=== PATIENT | female | born 1955 | race Two or more races ===

== ENCOUNTER 2016-09-10 23:15 | Inpatient (IN) | payer MEDICAID ==
[2016-09-10 23:48] VITALS: BP 118/63
[2016-09-11] MEDS ORDERED: Ipratropium Neb 0.5 mg/2.5 mL UD HHN PRN (00:08)
[2016-09-11] MEDS ORDERED: Albuterol Nebulizer 2.5mg/3mL HHN PRN (00:11)
[2016-09-11 01:47] LABS: URINE BILIRUBIN NEGATIVE (NEGATIVE); URINE BLOOD TRACE (NEGATIVE); URINE COLOR YELLOW; URINE GLUCOSE (UA) NEGATIVE (NEGATIVE); URINE KETONE NEGATIVE (NEGATIVE); URINE PROTEIN NEGATIVE (NEGATIVE); URINE UROBILINOGEN 0.2 E.U./dL (0.2 - 1.0)
[2016-09-11 01:50] LABS: URINE BACTERIA OCCASIONAL /hpf (NONE SEEN); URINE EPITHELIAL CELLS MODERATE /lpf (FEW); URINE RBC 0-2 /hpf (0-5); URINE WBC 0-2 /hpf (0-5)
[2016-09-11] MEDS: INSULIN ASPART, RECOMBINANT 100 UNITS/ML SUBQ SCH ×4 (06:37→20:20)
[2016-09-11 06:59] LABS: ALB/GLOB RATIO 1.2 (1.0-1.8); ALKALINE PHOSPHATASE 74 U/L (34-104); ANION GAP 7.8 (7.0-16.0); BILIRUBIN,TOTAL 1.3 mg/dL (0.3-1.0); BUN - UREA NITROGEN 15 mg/dL (7-25); CALCIUM SERUM 9.3 mg/dL (8.6-10.3); CHLORIDE 97 mEq/L (98-107); CREATININE - SERUM 0.6 mg/dL (0.6-1.2); GLUCOSE 200 mg/dL (70-105); MAGNESIUM 1.6 mg/dL (1.9-2.7); POTASSIUM SERUM 4.5 mEq/L (3.5-5.1); SGOT 15 U/L (13-39); SGPT/ALT 19 U/L (7-52); SODIUM SERUM 141 mEq/L (136-145)
[2016-09-11 07:15] LABS: CARBON DIOXIDE 40.7 mEq/L (21.0-31.0)
[2016-09-11 07:26] LABS: HEMOGLOBIN 11.8 gm/dL (11.7-15.5); MEAN CELL VOLUME 73.1 fl (81-100); MEAN CORPUSCULAR HEMOGLOBIN 21.5 pg (27.0-31.0); MEAN CORPUSCULAR HGB CONC 29.5 pg (28.0-36.0); MEAN PLATELET VOLUME 10.1 fl; PLATELET COUNT 217 Th/cmm (150-400); RED BLOOD COUNT 5.48 Mil/cmm (3.80-5.10); RED CELL DISTRIBUTION WIDTH 21.6 % (11.5-20.0); WHITE BLOOD COUNT 6.7 Th/cmm (4.8-10.8)
[2016-09-11] MEDS ORDERED: INSULIN ASPART SLIDING SCALE 100 UNITS/ML UNIT SUBQ SCH (07:30)
[2016-09-11] MEDS ORDERED: Levothyroxine 0.112 Mg Tab PO SCH (07:30)
[2016-09-11] MEDS: Pantoprazole 40 mg EC Tab PO SCH (08:28)
[2016-09-11] MEDS: Potassium Chloride 10 mEq ER Tab PO SCH ×2 (08:29→16:54)
[2016-09-11] MEDS ORDERED: Potassium Chloride 10 mEq ER Tab PO SCH (09:00)
[2016-09-11 09:43] LABS: BAND NEUTROPHILE 1 % (0-10); EOSINOPHIL 4 % (0-5); NEUTROPHILS 72 % (40-80); TOTAL CELLS COUNTED 100
[2016-09-11 09:44] LABS: ANISOCYTOSIS 1+; MICROCYTOSIS 3+; PLATELET ESTIMATE ADEQUATE (NORMAL); PLATELET MORPHOLOGY NORMAL (NORMAL)
[2016-09-11] MEDS ORDERED: Mag Sulfate 2gm/50mL Premix 2 GM/50 ML BAG IV ONE (11:22)
--- NOTE | 2016-09-11 12:23 | Diagnostic Imaging Report ---
Portable chest x-ray HISTORY: Shortness of breath. The heart is enlarged. No focal pulmonary processes. No hilar or mediastinal abnormalities. IMPRESSION: 1. Cardiomegaly 2. No acute focal pulmonary processes
--- NOTE | 2016-09-11 12:28 | Internal Medicine Prog Note ---
Internal Medicine Subjective - Subjective Service Date: 09/11/16 ([id number] [facility] dictated) Internal Medicine Objective - Results Result Diagrams: 09/11/16 05:49 09/11/16 05:49 Recent Labs: Laboratory Last Values WBC 6.7 Th/cmm (4.8-10.8) 09/11/16 05:49 RBC 5.48 Mil/cmm (3.80-5.10) H 09/11/16 05:49 Hgb 11.8 gm/dL (11.7-15.5) 09/11/16 05:49 Hct 40.0 % (35.0-45.0) 09/11/16 05:49 MCV 73.1 fl (81-100) L 09/11/16 05:49 MCH 21.5 pg (27.0-31.0) L 09/11/16 05:49 MCHC Differential 29.5 pg (28.0-36.0) 09/11/16 05:49 RDW 21.6 % (11.5-20.0) H 09/11/16 05:49 Plt Count 217 Th/cmm (150-400) 09/11/16 05:49 MPV 10.1 fl 09/11/16 05:49 Band Neutrophils % 1 % (0-10) 09/11/16 05:49 Neutrophils (Manual) 72 % (40-80) 09/11/16 05:49 Lymphocytes 11 % (20-50) L 09/11/16 05:49 Monocytes 12 % (2-10) H 09/11/16 05:49 Eosinophils 4 % (0-5) 09/11/16 05:49 Platelet Estimate ADEQUATE (NORMAL) 09/11/16 05:49 Platelet Morphology NORMAL (NORMAL) 09/11/16 05:49 Anisocytosis 1+ 09/11/16 05:49 Microcytosis 3+ 09/11/16 05:49 RBC Morph Micro Appear ABNORMAL (NORMAL) 09/11/16 05:49 Sodium 141 mEq/L (136-145) 09/11/16 05:49 Potassium 4.5 mEq/L (3.5-5.1) 09/11/16 05:49 Chloride 97 mEq/L (98-107) L 09/11/16 05:49 Carbon Dioxide 40.7 mEq/L (21.0-31.0) H 09/11/16 05:49 Anion Gap 7.8 (7.0-16.0) 09/11/16 05:49 BUN 15 mg/dL (7-25) 09/11/16 05:49 Creatinine 0.6 mg/dL (0.6-1.2) 09/11/16 05:49 Est GFR ( Amer) > 60.0 ml/min (>90) 09/11/16 05:49 Est GFR (Non-Af Amer) > 60.0 ml/min 09/11/16 05:49 BUN/Creatinine Ratio 25.0 09/11/16 05:49 Glucose 200 mg/dL (70-105) H 09/11/16 05:49 POC Glucose 219 MG/DL (70 - 105) H 09/11/16 11:45 Hemoglobin A1c % 9.0 % (4.0-6.0) H 09/11/16 05:49 Calcium 9.3 mg/dL (8.6-10.3) 09/11/16 05:49 Magnesium 1.6 mg/dL (1.9-2.7) L 09/11/16 05:49 Total Bilirubin 1.3 mg/dL (0.3-1.0) H 09/11/16 05:49 AST 15 U/L (13-39) 09/11/16 05:49 ALT 19 U/L (7-52) 09/11/16 05:49 Alkaline Phosphatase 74 U/L (34-104) 09/11/16 05:49 B-Natriuretic Peptide 141.0 pg/mL (5.0-100.0) H 09/11/16 05:49 Total Protein 6.2 gm/dL (6.0-8.3) 09/11/16 05:49 Albumin 3.4 gm/dL (3.7-5.3) L 09/11/16 05:49 Globulin 2.8 gm/dL 09/11/16 05:49 Albumin/Globulin Ratio 1.2 (1.0-1.8) 09/11/16 05:49 TSH 11.37 uIU/ml (0.34-5.60) H 09/11/16 05:49 Urine Source CLEAN C 09/11/16 00:45 Urine Color YELLOW 09/11/16 00:45 Urine Clarity CLEAR (CLEAR) 09/11/16 00:45 Urine pH 5.0 09/11/16 00:45 Ur Specific [place] 1.015 (1.005-1.030) 09/11/16 00:45 Urine Protein NEGATIVE mg/dL (NEGATIVE) 09/11/16 00:45 Urine Glucose (UA) NEGATIVE mg/dL (NEGATIVE) 09/11/16 00:45 Urine Ketones NEGATIVE mg/dL (NEGATIVE) 09/11/16 00:45 Urine Blood TRACE (NEGATIVE) 09/11/16 00:45 Urine Nitrate NEGATIVE (NEGATIVE) 09/11/16 00:45 Urine Bilirubin NEGATIVE (NEGATIVE) 09/11/16 00:45 Urine Urobilinogen 0.2 E.U./dL (0.2 - 1.0) 09/11/16 00:45 Ur Leukocyte Esterase NEGATIVE (NEGATIVE) 09/11/16 00:45 Urine RBC 0-2 /hpf (0-5) 09/11/16 00:45 Urine WBC 0-2 /hpf (0-5) 09/11/16 00:45 Ur Epithelial Cells MODERATE /lpf (FEW) 09/11/16 00:45 Urine Bacteria OCCASIONAL /hpf (NONE SEEN) 09/11/16 00:45 - Physical Exam Vitals and I&O: Vital Signs Temp 97.3 F 09/11/16 03:47 Pulse 85 09/11/16 08:28 Resp 20 09/11/16 04:28 BP 120/63 09/11/16 08:28 Pulse Ox 100 09/11/16 03:47 Intake & Output 09/10/16 09/11/16 09/11/16 18:59 06:59 18:59 Intake Total 400 Output Total 700 Balance -300 Weight (lbs) 150 lb Intake: Oral 400 Output: Urine 700 Active Medications: Current Medications Acetaminophen (Tylenol) 650 mg PO Q4HR PRN PRN Reason: Pain or Fever >101 Stop: 11/10/16 00:10 Albuterol Sulfate (Albuterol 2.5mg/3ml Neb Ud) 2.5 mg HHN Q2HR PRN PRN Reason: Shortness of Breath or Wheeze Stop: 11/10/16 00:10 Last Admin: 09/11/16 01:01 Dose: 2.5 mg Aspirin (Ecotrin) 81 mg PO DAILY [facility] EUGENIA Stop: 11/10/16 08:59 Last Admin: 09/11/16 08:28 Dose: 81 mg Docusate Sodium (Colace) 100 mg PO DAILY PRN PRN Reason: Constipation Stop: 11/10/16 00:07 Fluoxetine HCl (Prozac) 20 mg PO DAILY [facility] EUGENIA PRN Reason: Protocol Stop: 11/10/16 08:59 Last Admin: 09/11/16 10:31 Dose: 20 mg Furosemide (Lasix) 40 mg IVP DAILY [facility] EUGEN[facility] Stop: 11/11/16 08:59 Glipizide (Glucotrol) 10 mg PO BID [facility] EU[facility] Stop: 11/10/16 08:59 Last Admin: 09/11/16 08:28 Dose: 10 mg Heparin Sodium (Porcine) (Heparin) 5,000 units SUBQ Q12HR [facility] EUGEN[facility] Stop: 11/10/16 08:59 Last Admin: 09/11/16 09:06 Dose: 5,000 units Magnesium Sulfate (Magnesium Sulfate Premix) 2 gm in 50 mls @ 25 mls/hr IV X1 ONE Stop: 09/11/16 13:21 Last Admin: 09/11/16 11:58 Dose: 25 mls/hr Insulin Aspart (Novolog) 0 units SUBQ ACHS [facility] EUGEN[facility] PRN Reason: Protocol Stop: 11/10/16 07:29 Last Admin: 09/11/16 11:57 Dose: 2 units Ipratropium [place] (Atrovent Neb 0.5mg/2.5ml) 0.5 mg HHN Q6HR PRN PRN Reason: SOB, wheezing Stop: 11/10/16 00:07 Levothyroxine Sodium (Synthroid) 0.15 mg PO QDAC [facility] Stop: 11/11/16 07:29 Metoprolol Tartrate (Lopressor) 50 mg PO BID [facility] EUGEN[facility] Stop: 11/10/16 08:59 Last Admin: 09/11/16 08:28 Dose: 50 mg Ondansetron HCl (Zofran) 4 mg IV Q8H PRN PRN Reason: Nausea / Vomiting Stop: 11/10/16 00:10 Pantoprazole Sodium (Protonix) 40 mg PO DAILY [facility] EUGEN[facility] Stop: 11/10/16 08:59 Last Admin: 09/11/16 08:28 Dose: 40 mg Pioglitazone HCl (Actos) 15 mg PO DAILY [facility] Stop: 11/10/16 08:59 Last Admin: 09/11/16 08:28 Dose: 15 mg Potassium Chloride (Klor-Con) 10 meq PO BID [facility] Stop: 11/10/16 08:59 Last Admin: 09/11/16 08:29 Dose: 10 meq Simvastatin (Zocor) 20 mg PO HS [facility] EUGENIA PRN Reason: Protocol Stop: 11/10/16 20:59 Zolpidem Tartrate (Ambien) 10 mg PO HS PRN PRN Reason: Insomnia Stop: 11/10/16 00:10 Internal Medicine Assmt/Plan - Assessment Assessment: ACUTE CHF EXACERBATION MORBID OBESITY HTN HYPOTHYROIDISM HYPOMAGNESEMIA MORBID OBESITY DM-2 DEPRESSION
--- NOTE | 2016-09-11 12:32 | Admit Criteria Form ---
Admit Criteria Forms - Admit Criteria Diagnosis: HEART FAILURE: COMMON COMPLICATIONS Clinical Indications for Inpatient Care (Place 'X' for any and all applicable criteria): Ongoing inpatient care may be indicated for heart failure with ANY ONE of the following (1)(2)(3)(4)(5): [ ]I. Ongoing need for care for primary condition requiring frequent therapy adjustments because of changes in cardiac function (eg, drug dosage changes for drugs that are renally metabolized) [ ]II. New-onset heart failure [ ]III. Heart failure with decreased urine output not responsive to attempts to optimize volume status [ ]IV. Acute cardiac ischemia causing or associated with failure [X]V. Complications of heart failure, including ANY ONE of the following: [ ]a) Pericardial effusion [ ]b) Symptomatic pleural effusion [ ]c) O2 saturation <90% or PO2 < 60 mm Hg (8.0 kPa) on room air or require baseline supplemental O2 [ ]d) Tachypnea [ ]e) Dyspnea [ ]f) Syncope [ ]g) Change in mental status [ ]h) Acute renal insufficiency that is severe (reduction of more than 50% in estimated glomerular filtration rate from baseline) or progressive reduction of more than 25% in estimated glomerular filtration rate from baseline, with creatinine continuing to rise) [ ]i) Hemodynamic instability [X]j) Anasarca [ ]k) Clinically significant metabolic abnormalities due to heart failure (eg, new-onset metabolic acidosis) Extended stay beyond goal length of stay for primary condition may be needed until ALL of the following are present(1)(3): [ ]a) Stable and effective diuretic regimen established (or patient on stable dialysis regimen if in chronic renal failure) [ ]b) Breathing comfortably at rest [ ]c) Saturation of arterial oxygen greater than 90% or at acceptable baseline [ ]d) Pulmonary edema absent or improved [ ]e) Hemodynamic stability [ ]f) Volume status acceptable on oral medication [ ]g) Peripheral or sacral edema absent or improved [ ]h) Renal function stable and manageable at a lower level of care [ ]i) Complications (eg, pleural effusion) resolved or manageable at a lower level of care [ ]j) Patient or caregiver has received written discharge instructions or educational material addressing activity level, diet, discharge medications, follow-up appointment, weight monitoring, and what to do if symptoms worsen The original [employer] content created by [employer] has been revised. The portions of the content which have been revised are identified through the use of italic text or in bold, and [employer] has neither reviewed nor approved the modified material.All other unmodified content is copyright [employer]. Please see references footnoted in the original [employer] edition 2016 Admit Criteria Met?: Yes
--- NOTE | 2016-09-11 14:50 | History & Physical ---
CHIEF COMPLAINT: Depression and edema. HISTORY OF PRESENT ILLNESS: This is a 61-year-old female who is a direct admission from [facility]. According to the patient, she was just recently at [place] 4 days ago and she states that she had a flu. Upon coming back here to the [place], the patient stated that she started to feel depressed she left her family and she started to get shortness of breath associated with leg swelling. The patient denies any cough, any chest pain. Due to insurance purposes, the patient is now here at [facility]. PAST MEDICAL HISTORY: Asthma, type 2 diabetes, hypertension, hypothyroidism, obesity, hypercholesterolemia. PAST SURGICAL HISTORY: The patient stated that she had a thyroidectomy but she stated that it was a while back she cannot remember how long ago it was. SOCIAL HISTORY: Denies any smoking, drinking, or illicit drug usage. FAMILY HISTORY: Noncontributory. ALLERGIES: No drug allergies. REVIEW OF SYSTEMS: GENERAL: Denies any fever, any chills. CARDIOVASCULAR: Denies any chest pain. RESPIRATORY: Denies any shortness of breath or any cough. GASTROINTESTINAL: Denies any nausea, vomiting, abdominal pain. GENITOURINARY: Denies any dysuria. All other systems are reviewed by me and are negative. PHYSICAL EXAMINATION: GENERAL: The patient is morbidly obese, awake, alert, in no apparent distress. VITAL SIGNS: Temperature 97.0, heart rate 85, blood pressure 114/64, respirations 19, O2 100%. HEENT: Head; normocephalic, atraumatic. NECK: Supple. No mass. LUNGS: Few rhonchi. HEART: Regular rhythm. ABDOMEN: Soft, nontender. LABORATORY RESULTS: WBC 6.7, H and H 11.8 and 40.0, platelet of 217. Sodium 141, potassium 4.5, chloride 97, carbon dioxide 40.7, BUN 15, creatinine 0.6, hemoglobin A1c of 9.0, magnesium 1.6. The patient had a urinalysis done and it was negative for any UTI. DIAGNOSTICS: The patient had a chest x-ray done and the impression is cardiomegaly, no acute pulmonary processes. ASSESSMENT: 1. Acute congestive heart failure exacerbation. 2. Generalized edema. 3. Hypothyroidism. 4. Type 2 diabetes. 5. Hypomagnesemia. PLAN: Cardiac consult Dr. Jose Christianson. Low sodium diet. The patient will obtain a 2D echo. Monitor the patient's INR. The patient will be kept on Lasix. We will continue to monitor the patient. JOB# [id number]
--- NOTE | 2016-09-12 00:05 | Consultation ---
The patient of Dr. Mansfield. HISTORY AND PHYSICAL: This 61-year-old female patient who was recently visiting [place]. Following this, the patient is started complaining of abdominal swelling, both lower extremity swelling, depression, and the patient was brought to the Emergency Room with anasarca and the patient was transferred to [facility] due to insurance reason. PAST MEDICAL HISTORY: Obesity, diabetes mellitus type 2, asthma, hypertension, hyperlipidemia, hypomagnesium, hypothyroid with thyroidectomy. FAMILY HISTORY: Unremarkable. SOCIAL HISTORY: No history of smoking, alcohol abuse. ALLERGIES: No known allergies. PHYSICAL EXAMINATION: VITAL SIGNS: Blood pressure 114/82, pulse 70, respirations 20. HEAD: Normocephalic. No lumps or bumps. EYES: Pupils equal, reactive to light. Fundi show AV nicking, sclerae white, conjunctivae pink. NECK: Carotid 2+. Normal upstroke. JVD flat. Thyroid not palpable. Lymph nodes not palpable. CHEST: Shows increased AP diameter. No kyphosis or scoliosis. LUNGS: Bilateral rales. Decreased breath sounds both the bases. HEART: PMI, fifth intercostal space with lateral to midclavicular line. S1, S2, S3, S4. Systolic murmur, grade 2/6, lower left sternal border without radiation. ABDOMEN: Soft. Liver, spleen not palpable. The patient has ascites, obesity, no organomegaly. NEUROLOGIC: Unremarkable. EXTREMITIES: Peripheral pulses 2+. No pedal edema. CLINICAL IMPRESSION: Acute respiratory failure, generalized anasarca, congestive heart failure, hypothyroidism, hypomagnesium, diabetes mellitus type 2, thyroidectomy. PLAN: The patient to have magnesium sulfate IV, is to continue on supplemental hypothyroid medication. The patient is to have echocardiogram for left ventricular function. JOB# [id number]
[2016-09-12 05:47] LABS: HEMATOCRIT 38.9 % (35.0-45.0); HEMOGLOBIN 11.6 gm/dL (11.7-15.5); MEAN CELL VOLUME 72.6 fl (81-100); MEAN CORPUSCULAR HEMOGLOBIN 21.6 pg (27.0-31.0); MEAN CORPUSCULAR HGB CONC 29.8 pg (28.0-36.0); MEAN PLATELET VOLUME 8.6 fl; PLATELET COUNT 196 Th/cmm (150-400); RED BLOOD COUNT 5.36 Mil/cmm (3.80-5.10); RED CELL DISTRIBUTION WIDTH 22.1 % (11.5-20.0); WHITE BLOOD COUNT 7.5 Th/cmm (4.8-10.8)
[2016-09-12 06:07] LABS: ANION GAP 3.8 (7.0-16.0); BUN - UREA NITROGEN 18 mg/dL (7-25); CALCIUM SERUM 9.1 mg/dL (8.6-10.3); CHLORIDE 93 mEq/L (98-107); CREATININE - SERUM 0.6 mg/dL (0.6-1.2); GLUCOSE 126 mg/dL (70-105); POTASSIUM SERUM 4.5 mEq/L (3.5-5.1); SODIUM SERUM 138 mEq/L (136-145)
[2016-09-12 06:12] LABS: CARBON DIOXIDE 45.7 mEq/L (21.0-31.0)
[2016-09-12] MEDS: Levothyroxine 0.15 Mg Tab PO SCH (06:51)
[2016-09-12] MEDS: INSULIN ASPART, RECOMBINANT 100 UNITS/ML SUBQ SCH ×4 (06:57→20:38)
[2016-09-12] MEDS: Potassium Chloride 10 mEq ER Tab PO SCH ×2 (08:20→17:44)
[2016-09-12] MEDS: Pantoprazole 40 mg EC Tab PO SCH (08:20)
[2016-09-12 08:24] LABS: BAND NEUTROPHILE 2 % (0-10); EOSINOPHIL 10 % (0-5); NEUTROPHILS 73 % (40-80); TOTAL CELLS COUNTED 100
[2016-09-12 08:25] LABS: ANISOCYTOSIS 1+
[2016-09-12 08:26] LABS: MICROCYTOSIS 3+; PLATELET ESTIMATE ADEQUATE (NORMAL); PLATELET MORPHOLOGY NORMAL (NORMAL)
[2016-09-12 10:17] LABS: FOLIC ACID 12.1 ng/mL (>3.0)
--- NOTE | 2016-09-12 15:56 | Cardiology ---
M-MODE ECHOCARDIOGRAM: Anterior leaflets of mitral valve shows normal excursion, EF velocity. Posterior leaflets of mitral valve shows normal excursion. Left ventricular posterior wall shows increased thickness, normal excursion. Interventricular septum shows increased thickness, normal excursion, hypertrophy of the left ventricle, ejection fraction 55%. Left atrium normal. Aortic root shows normal dimension, normal excursion of aortic leaflets. CONCLUSION: Hypertrophy of the left ventricle, ejection fraction 55%. 2D ECHO: Long axis view showed normal sized left ventricle with hypertrophy of the left ventricle. Left atrium normal. Aortic root shows normal dimension, normal excursion of aortic leaflets. Short axis view of mitral valve normal. Short axis view of aortic valve normal. Apical four chamber view showed normal sized left ventricle with hypertrophy of the left ventricle. Left atrium normal. Right ventricular cavity, right atrium normal, no pericardial effusion. CONCLUSION: Hypertrophy of the left ventricle, ejection fraction 55%. Doppler study shows trace mitral regurgitation, prominent A wave consistent with poor compliance of left ventricle. Trace tricuspid regurgitation. [facility]# [id number]
--- NOTE | 2016-09-12 16:03 | Internal Medicine Prog Note ---
Internal Medicine Subjective - Subjective Service Date: 09/12/16 Patient seen and examined:: with staff Patient is:: awake Per staff patient is:: no adverse event Internal Medicine Objective - Results Result Diagrams: 09/12/16 05:21 09/12/16 05:21 Recent Labs: Laboratory Last Values WBC 7.5 Th/cmm (4.8-10.8) 09/12/16 05:21 RBC 5.36 Mil/cmm (3.80-5.10) H 09/12/16 05:21 Hgb 11.6 gm/dL (11.7-15.5) L 09/12/16 05:21 Hct 38.9 % (35.0-45.0) 09/12/16 05:21 MCV 72.6 fl (81-100) L 09/12/16 05:21 MCH 21.6 pg (27.0-31.0) L 09/12/16 05:21 MCHC Differential 29.8 pg (28.0-36.0) 09/12/16 05:21 RDW 22.1 % (11.5-20.0) H 09/12/16 05:21 Plt Count 196 Th/cmm (150-400) 09/12/16 05:21 MPV 8.6 fl 09/12/16 05:21 Band Neutrophils % 2 % (0-10) 09/12/16 05:21 Neutrophils (Manual) 73 % (40-80) 09/12/16 05:21 Lymphocytes 10 % (20-50) L 09/12/16 05:21 Monocytes 5 % (2-10) 09/12/16 05:21 Eosinophils 10 % (0-5) H 09/12/16 05:21 Platelet Estimate ADEQUATE (NORMAL) 09/12/16 05:21 Platelet Morphology NORMAL (NORMAL) 09/12/16 05:21 Anisocytosis 1+ 09/12/16 05:21 Microcytosis 3+ 09/12/16 05:21 RBC Morph Micro Appear ABNORMAL (NORMAL) 09/12/16 05:21 Sodium 138 mEq/L (136-145) 09/12/16 05:21 Potassium 4.5 mEq/L (3.5-5.1) 09/12/16 05:21 Chloride 93 mEq/L (98-107) L 09/12/16 05:21 Carbon Dioxide 45.7 mEq/L (21.0-31.0) H 09/12/16 05:21 Anion Gap 3.8 (7.0-16.0) L 09/12/16 05:21 BUN 18 mg/dL (7-25) 09/12/16 05:21 Creatinine 0.6 mg/dL (0.6-1.2) 09/12/16 05:21 Est GFR ( Amer) > 60.0 ml/min (>90) 09/12/16 05:21 Est GFR (Non-Af Amer) > 60.0 ml/min 09/12/16 05:21 BUN/Creatinine Ratio 30.0 09/12/16 05:21 Glucose 126 mg/dL (70-105) H 09/12/16 05:21 POC Glucose 191 MG/DL (70 - 105) H 09/12/16 11:26 Hemoglobin A1c % 9.0 % (4.0-6.0) H 09/11/16 05:49 Calcium 9.1 mg/dL (8.6-10.3) 09/12/16 05:21 Magnesium 2.0 mg/dL (1.9-2.7) 09/12/16 05:21 Total Bilirubin 1.3 mg/dL (0.3-1.0) H 09/11/16 05:49 AST 15 U/L (13-39) 09/11/16 05:49 ALT 19 U/L (7-52) 09/11/16 05:49 Alkaline Phosphatase 74 U/L (34-104) 09/11/16 05:49 B-Natriuretic Peptide 141.0 pg/mL (5.0-100.0) H 09/11/16 05:49 Total Protein 6.2 gm/dL (6.0-8.3) 09/11/16 05:49 Albumin 3.4 gm/dL (3.7-5.3) L 09/11/16 05:49 Globulin 2.8 gm/dL 09/11/16 05:49 Albumin/Globulin Ratio 1.2 (1.0-1.8) 09/11/16 05:49 Vitamin B12 1351 pg/mL (211-946) H 09/11/16 05:49 Folic Acid 12.1 ng/mL (>3.0) 09/11/16 05:49 TSH 11.37 uIU/ml (0.34-5.60) H 09/11/16 05:49 Urine Source CLEAN C 09/11/16 00:45 Urine Color YELLOW 09/11/16 00:45 Urine Clarity CLEAR (CLEAR) 09/11/16 00:45 Urine pH 5.0 09/11/16 00:45 Ur Specific [place] 1.015 (1.005-1.030) 09/11/16 00:45 Urine Protein NEGATIVE mg/dL (NEGATIVE) 09/11/16 00:45 Urine Glucose (UA) NEGATIVE mg/dL (NEGATIVE) 09/11/16 00:45 Urine Ketones NEGATIVE mg/dL (NEGATIVE) 09/11/16 00:45 Urine Blood TRACE (NEGATIVE) 09/11/16 00:45 Urine Nitrate NEGATIVE (NEGATIVE) 09/11/16 00:45 Urine Bilirubin NEGATIVE (NEGATIVE) 09/11/16 00:45 Urine Urobilinogen 0.2 E.U./dL (0.2 - 1.0) 09/11/16 00:45 Ur Leukocyte Esterase NEGATIVE (NEGATIVE) 09/11/16 00:45 Urine RBC 0-2 /hpf (0-5) 09/11/16 00:45 Urine WBC 0-2 /hpf (0-5) 09/11/16 00:45 Ur Epithelial Cells MODERATE /lpf (FEW) 09/11/16 00:45 Urine Bacteria OCCASIONAL /hpf (NONE SEEN) 09/11/16 00:45 - Physical Exam Vitals and I&O: Vital Signs Temp 97.5 F 09/12/16 11:00 Pulse 87 09/12/16 11:00 Resp 20 09/12/16 12:00 BP 90/59 09/12/16 11:00 Pulse Ox 94 09/12/16 11:00 Intake & Output 09/11/16 09/12/16 09/12/16 18:59 06:59 18:59 Intake Total 1600 500 Output Total 1700 650 Balance -100 -150 Weight (lbs) 222 lb 221 lb Intake: Oral 1600 500 Output: Urine 1700 650 Other: Stool Characteristics Soft Formed Active Medications: Current Medications Acetaminophen (Tylenol) 650 mg PO Q4HR PRN PRN Reason: Pain or Fever >101 Stop: 11/10/16 00:10 Albuterol Sulfate (Albuterol 2.5mg/3ml Neb Ud) 2.5 mg HHN Q2HR PRN PRN Reason: Shortness of Breath or Wheeze Stop: 11/10/16 00:10 Last Admin: 09/11/16 01:01 Dose: 2.5 mg Aspirin (Ecotrin) 81 mg PO DAILY [facility]IA EUGENIA Stop: 11/10/16 08:59 Last Admin: 09/12/16 08:21 Dose: 81 mg Docusate Sodium (Colace) 100 mg PO DAILY PRN PRN Reason: Constipation Stop: 11/10/16 00:07 Fluoxetine HCl (Prozac) 20 mg PO DAILY MARIA EUGENIA PRN Reason: Protocol Stop: 11/10/16 08:59 Last Admin: 09/12/16 08:21 Dose: 20 mg Furosemide (Lasix) 40 mg IVP DAILY [facility] Stop: 11/11/16 08:59 Last Admin: 09/12/16 08:21 Dose: 40 mg Glipizide (Glucotrol) 10 mg PO BID [facility] Stop: 11/10/16 08:59 Last Admin: 09/12/16 08:20 Dose: 10 mg Heparin Sodium (Porcine) (Heparin) 5,000 units SUBQ Q12HR [facility] EUGEN[facility] Stop: 11/10/16 08:59 Last Admin: 09/12/16 08:30 Dose: 5,000 units Insulin Aspart (Novolog) 0 units SUBQ ACHS [facility]IA EUGENIA PRN Reason: Protocol Stop: 11/10/16 07:29 Last Admin: 09/12/16 11:30 Dose: Not Given Ipratropium [place] (Atrovent Neb 0.5mg/2.5ml) 0.5 mg HHN Q6HR PRN PRN Reason: SOB, wheezing Stop: 11/10/16 00:07 Levothyroxine Sodium (Synthroid) 0.15 mg PO QDAC [facility] Stop: 11/11/16 07:29 Last Admin: 09/12/16 06:51 Dose: 0.15 mg Metoprolol Tartrate (Lopressor) 50 mg PO BID [facility] Stop: 11/10/16 08:59 Last Admin: 09/12/16 08:25 Dose: Not Given Ondansetron HCl (Zofran) 4 mg IV Q8H PRN PRN Reason: Nausea / Vomiting Stop: 11/10/16 00:10 Pantoprazole Sodium (Protonix) 40 mg PO DAILY [facility] EUGENIA Stop: 11/10/16 08:59 Last Admin: 09/12/16 08:20 Dose: 40 mg Pioglitazone HCl (Actos) 15 mg PO DAILY [facility] EUGENIA Stop: 11/10/16 08:59 Last Admin: 09/12/16 08:20 Dose: 15 mg Potassium Chloride (Klor-Con) 10 meq PO BID [facility] EUGENIA Stop: 11/10/16 08:59 Last Admin: 09/12/16 08:20 Dose: 10 meq Simvastatin (Zocor) 20 mg PO HS [facility] EUGENIA PRN Reason: Protocol Stop: 11/10/16 20:59 Last Admin: 09/11/16 20:19 Dose: 20 mg Zolpidem Tartrate (Ambien) 10 mg PO HS PRN PRN Reason: Insomnia Stop: 11/10/16 00:10 General: alert HEENT: NC/AT, PERRLA Neck: Supple Lungs: CTAB Cardiovascular: RRR, Normal S1, Normal S2, without murmur Abdomen: soft non-tender, non-distended, positive bowel sound Neurological: no change Internal Medicine Assmt/Plan - Assessment Assessment: ACUTE CHF EXACERBATION MORBID OBESITY HTN HYPOTHYROIDISM HYPOMAGNESEMIA MORBID OBESITY DM-2 DEPRESSION - Plan Plan: AWAITING FOR 2D ECHO F/U LAB IN AM IF CLEARED BY CARDIO WILL DC TOMORROW
--- NOTE | 2016-09-13 03:54 | Consultation ---
HISTORY OF PRESENT ILLNESS: The patient was seen, chart reviewed. [id number] was present. Georgian-speaking staff helped. The patient is a 61-year-old female with a history of anxiety and depression. She feels helpless at times, talked about her medical issues, but she has no wishes, no suicidal thoughts. The patient reports occasional insomnia, talked about tingling sensation in her feet for a while, possibly related to diabetic neuropathy. The patient said she feels sad and she feels helpless. PAST PSYCHIATRIC HISTORY: No prior psychiatric hospitalizations. No prior suicidal attempts. PAST MEDICAL HISTORY: Hypertension, obesity, asthma versus COPD, and diabetes. PSYCHOSOCIAL HISTORY: The patient lives at home with her son and [id number]. MENTAL STATUS EXAMINATION: The patient is cooperative, makes fair eye contact. Speech fluent, low tone. The patient had sad facial expression and depressed affect. No other visual hallucination. She is oriented to time, place, and person. No suicidal thoughts. ASSESSMENT: Major depressive disorder, recurrent, moderate to severe. PLAN: At this time, we would recommend continuation of medical supportive measures, continue Ambien 10 mg p.o. at bedtime p.r.n. insomnia. Use Cymbalta 30 mg daily for 1 week, then increase it to 60 mg daily. This medication might be effective for both depression and neuropathic pain. Discontinue Prozac. The patient is in agreement. Thank you for the consultation. [facility]# [id number]
[2016-09-13 05:46] LABS: HEMOGLOBIN 11.8 gm/dL (11.7-15.5); MEAN CELL VOLUME 72.3 fl (81-100); MEAN CORPUSCULAR HEMOGLOBIN 21.9 pg (27.0-31.0); MEAN CORPUSCULAR HGB CONC 30.2 pg (28.0-36.0); MEAN PLATELET VOLUME 9.3 fl; PLATELET COUNT 232 Th/cmm (150-400); RED BLOOD COUNT 5.39 Mil/cmm (3.80-5.10); RED CELL DISTRIBUTION WIDTH 22.2 % (11.5-20.0); WHITE BLOOD COUNT 7.3 Th/cmm (4.8-10.8)
[2016-09-13 06:21] LABS: ANION GAP 5.5 (7.0-16.0); BUN - UREA NITROGEN 14 mg/dL (7-25); CALCIUM SERUM 9.5 mg/dL (8.6-10.3); CHLORIDE 92 mEq/L (98-107); CREATININE - SERUM 0.5 mg/dL (0.6-1.2); GLUCOSE 130 mg/dL (70-105); MAGNESIUM 1.8 mg/dL (1.9-2.7); POTASSIUM SERUM 4.7 mEq/L (3.5-5.1); SODIUM SERUM 137 mEq/L (136-145)
[2016-09-13 06:23] LABS: CARBON DIOXIDE 44.2 mEq/L (21.0-31.0)
[2016-09-13] MEDS: Levothyroxine 0.15 Mg Tab PO SCH (06:34)
[2016-09-13] MEDS: INSULIN ASPART, RECOMBINANT 100 UNITS/ML SUBQ SCH ×4 (06:36→20:31)
[2016-09-13] MEDS: Pantoprazole 40 mg EC Tab PO SCH (08:50)
[2016-09-13] MEDS: Potassium Chloride 10 mEq ER Tab PO SCH ×2 (08:50→17:15)
[2016-09-13 08:51] LABS: EOSINOPHIL 5 % (0-5); NEUTROPHILS 80 % (40-80); TOTAL CELLS COUNTED 100
[2016-09-13 08:52] LABS: ANISOCYTOSIS 1+; MICROCYTOSIS 2+; PLATELET ESTIMATE ADEQUATE (NORMAL); PLATELET MORPHOLOGY NORMAL (NORMAL)
[2016-09-13] MEDS ORDERED: Mag Sulfate 2gm/50mL Premix 2 GM/50 ML BAG IV ONE (16:44)
--- NOTE | 2016-09-13 16:45 | Internal Medicine Prog Note ---
Internal Medicine Subjective - Subjective Patient seen and examined:: with staff, chart reviewed Patient is:: awake, verbal, interactive Patient Complaints of:: congestion Per staff patient is:: no adverse event, poor appetite Internal Medicine Objective - Results Result Diagrams: 09/13/16 05:06 09/13/16 05:06 Recent Labs: Laboratory Last Values WBC 7.3 Th/cmm (4.8-10.8) 09/13/16 05:06 RBC 5.39 Mil/cmm (3.80-5.10) H 09/13/16 05:06 Hgb 11.8 gm/dL (11.7-15.5) 09/13/16 05:06 Hct 39.0 % (35.0-45.0) 09/13/16 05:06 MCV 72.3 fl (81-100) L 09/13/16 05:06 MCH 21.9 pg (27.0-31.0) L 09/13/16 05:06 MCHC Differential 30.2 pg (28.0-36.0) 09/13/16 05:06 RDW 22.2 % (11.5-20.0) H 09/13/16 05:06 Plt Count 232 Th/cmm (150-400) 09/13/16 05:06 MPV 9.3 fl 09/13/16 05:06 Band Neutrophils % 2 % (0-10) 09/12/16 05:21 Neutrophils (Manual) 80 % (40-80) 09/13/16 05:06 Lymphocytes 11 % (20-50) L 09/13/16 05:06 Monocytes 4 % (2-10) 09/13/16 05:06 Eosinophils 5 % (0-5) 09/13/16 05:06 Platelet Estimate ADEQUATE (NORMAL) 09/13/16 05:06 Platelet Morphology NORMAL (NORMAL) 09/13/16 05:06 Anisocytosis 1+ 09/13/16 05:06 Microcytosis 2+ 09/13/16 05:06 RBC Morph Micro Appear ABNORMAL (NORMAL) 09/13/16 05:06 Sodium 137 mEq/L (136-145) 09/13/16 05:06 Potassium 4.7 mEq/L (3.5-5.1) 09/13/16 05:06 Chloride 92 mEq/L (98-107) L 09/13/16 05:06 Carbon Dioxide 44.2 mEq/L (21.0-31.0) H 09/13/16 05:06 Anion Gap 5.5 (7.0-16.0) L 09/13/16 05:06 BUN 14 mg/dL (7-25) 09/13/16 05:06 Creatinine 0.5 mg/dL (0.6-1.2) L 09/13/16 05:06 Est GFR ( Amer) > 60.0 ml/min (>90) 09/13/16 05:06 Est GFR (Non-Af Amer) > 60.0 ml/min 09/13/16 05:06 BUN/Creatinine Ratio 28.0 09/13/16 05:06 Glucose 130 mg/dL (70-105) H 09/13/16 05:06 POC Glucose 175 MG/DL (70 - 105) H 09/12/16 20:25 Hemoglobin A1c % 9.0 % (4.0-6.0) H 09/11/16 05:49 Calcium 9.5 mg/dL (8.6-10.3) 09/13/16 05:06 Magnesium 1.8 mg/dL (1.9-2.7) L 09/13/16 05:06 Total Bilirubin 1.3 mg/dL (0.3-1.0) H 09/11/16 05:49 AST 15 U/L (13-39) 09/11/16 05:49 ALT 19 U/L (7-52) 09/11/16 05:49 Alkaline Phosphatase 74 U/L (34-104) 09/11/16 05:49 B-Natriuretic Peptide 141.0 pg/mL (5.0-100.0) H 09/11/16 05:49 Total Protein 6.2 gm/dL (6.0-8.3) 09/11/16 05:49 Albumin 3.4 gm/dL (3.7-5.3) L 09/11/16 05:49 Globulin 2.8 gm/dL 09/11/16 05:49 Albumin/Globulin Ratio 1.2 (1.0-1.8) 09/11/16 05:49 Vitamin B12 1351 pg/mL (211-946) H 09/11/16 05:49 Folic Acid 12.1 ng/mL (>3.0) 09/11/16 05:49 TSH 11.37 uIU/ml (0.34-5.60) H 09/11/16 05:49 Urine Source CLEAN C 09/11/16 00:45 Urine Color YELLOW 09/11/16 00:45 Urine Clarity CLEAR (CLEAR) 09/11/16 00:45 Urine pH 5.0 09/11/16 00:45 Ur Specific [place] 1.015 (1.005-1.030) 09/11/16 00:45 Urine Protein NEGATIVE mg/dL (NEGATIVE) 09/11/16 00:45 Urine Glucose (UA) NEGATIVE mg/dL (NEGATIVE) 09/11/16 00:45 Urine Ketones NEGATIVE mg/dL (NEGATIVE) 09/11/16 00:45 Urine Blood TRACE (NEGATIVE) 09/11/16 00:45 Urine Nitrate NEGATIVE (NEGATIVE) 09/11/16 00:45 Urine Bilirubin NEGATIVE (NEGATIVE) 09/11/16 00:45 Urine Urobilinogen 0.2 E.U./dL (0.2 - 1.0) 09/11/16 00:45 Ur Leukocyte Esterase NEGATIVE (NEGATIVE) 09/11/16 00:45 Urine RBC 0-2 /hpf (0-5) 09/11/16 00:45 Urine WBC 0-2 /hpf (0-5) 09/11/16 00:45 Ur Epithelial Cells MODERATE /lpf (FEW) 09/11/16 00:45 Urine Bacteria OCCASIONAL /hpf (NONE SEEN) 09/11/16 00:45 - Physical Exam Vitals and I&O: Vital Signs Temp 97.2 F 09/13/16 04:11 Pulse 74 09/13/16 08:49 Resp 20 09/13/16 04:11 BP 130/65 09/13/16 08:50 Pulse Ox 94 09/13/16 04:11 Intake & Output 09/12/16 09/13/16 09/13/16 18:59 06:59 18:59 Intake Total 1850 320 Output Total 3400 1100 Balance -1550 -780 Weight (lbs) 97.522 kg Intake: Oral 1850 320 Output: Urine 3400 1100 Other: # Bowel Movements 1 Stool Characteristics Soft Soft Formed Formed Active Medications: Current Medications Acetaminophen (Tylenol) 650 mg PO Q4HR PRN PRN Reason: Pain or Fever >101 Stop: 11/10/16 00:10 Albuterol Sulfate (Albuterol 2.5mg/3ml Neb Ud) 2.5 mg HHN Q2HR PRN PRN Reason: Shortness of Breath or Wheeze Stop: 11/10/16 00:10 Last Admin: 09/11/16 01:01 Dose: 2.5 mg Aspirin (Ecotrin) 81 mg PO DAILY [facility] Stop: 11/10/16 08:59 Last Admin: 09/13/16 08:49 Dose: 81 mg Docusate Sodium (Colace) 100 mg PO DAILY PRN PRN Reason: Constipation Stop: 11/10/16 00:07 Duloxetine HCl (Cymbalta) 30 mg PO DAILY [facility] Stop: 11/12/16 08:59 Last Admin: 09/13/16 08:50 Dose: 30 mg Furosemide (Lasix) 40 mg IVP DAILY [facility] Stop: 11/11/16 08:59 Last Admin: 09/13/16 08:50 Dose: 40 mg Glipizide (Glucotrol) 10 mg PO BID [facility] Stop: 11/10/16 08:59 Last Admin: 09/13/16 08:50 Dose: 10 mg Heparin Sodium (Porcine) (Heparin) 5,000 units SUBQ Q12HR [facility] Stop: 11/10/16 08:59 Last Admin: 09/13/16 08:51 Dose: 5,000 units Insulin Aspart (Novolog) 0 units SUBQ ACHS [facility] PRN Reason: Protocol Stop: 11/10/16 07:29 Last Admin: 09/13/16 12:09 Dose: 2 units Ipratropium [place] (Atrovent Neb 0.5mg/2.5ml) 0.5 mg HHN Q6HR PRN PRN Reason: SOB, wheezing Stop: 11/10/16 00:07 Levothyroxine Sodium (Synthroid) 0.15 mg PO QDAC [facility] Stop: 11/11/16 07:29 Last Admin: 09/13/16 06:34 Dose: 0.15 mg Metoprolol Tartrate (Lopressor) 50 mg PO BID [facility] Stop: 11/10/16 08:59 Last Admin: 09/13/16 08:49 Dose: 50 mg Ondansetron HCl (Zofran) 4 mg IV Q8H PRN PRN Reason: Nausea / Vomiting Stop: 11/10/16 00:10 Pantoprazole Sodium (Protonix) 40 mg PO DAILY [facility] Stop: 11/10/16 08:59 Last Admin: 09/13/16 08:50 Dose: 40 mg Pioglitazone HCl (Actos) 15 mg PO DAILY [facility] Stop: 11/10/16 08:59 Last Admin: 09/13/16 08:49 Dose: 15 mg Potassium Chloride (Klor-Con) 10 meq PO BID [facility] Stop: 11/10/16 08:59 Last Admin: 09/13/16 08:50 Dose: 10 meq Simvastatin (Zocor) 20 mg PO HS [facility] PRN Reason: Protocol Stop: 11/10/16 20:59 Last Admin: 09/12/16 20:38 Dose: 20 mg Zolpidem Tartrate (Ambien) 10 mg PO HS PRN PRN Reason: Insomnia Stop: 11/10/16 00:10 General: congested HEENT: NC/AT, PERRLA Neck: Supple, No JVD Lungs: congested Cardiovascular: RRR, Normal S1, Normal S2 Abdomen: soft non-tender, globular Extremities: edema Neurological: no change Internal Medicine Assmt/Plan - Assessment Assessment: ACUTE CHF EXACERBATION MORBID OBESITY HTN HYPOTHYROIDISM HYPOMAGNESEMIA MORBID OBESITY DM-2 DEPRESSION - Plan Plan: cont on diuretic replace lytes will review 2d echo mónica reyna
[2016-09-14 06:15] LABS: ANION GAP 6.8 (7.0-16.0); BUN - UREA NITROGEN 19 mg/dL (7-25); BUN/CREATININE RATIO 31.7; CALCIUM SERUM 9.8 mg/dL (8.6-10.3); CHLORIDE 89 mEq/L (98-107); CREATININE - SERUM 0.6 mg/dL (0.6-1.2); GLUCOSE 126 mg/dL (70-105); POTASSIUM SERUM 4.7 mEq/L (3.5-5.1); SODIUM SERUM 136 mEq/L (136-145)
[2016-09-14] MEDS: Levothyroxine 0.15 Mg Tab PO SCH (06:30)
[2016-09-14] MEDS: INSULIN ASPART, RECOMBINANT 100 UNITS/ML SUBQ SCH ×2 (06:31→11:58)
[2016-09-14 06:36] LABS: CARBON DIOXIDE 44.9 mEq/L (21.0-31.0)
[2016-09-14] MEDS: Pantoprazole 40 mg EC Tab PO SCH (08:47)
[2016-09-14] MEDS: Potassium Chloride 10 mEq ER Tab PO SCH ×2 (08:47→16:59)
--- NOTE | 2016-09-14 14:26 | Internal Medicine Prog Note ---
Internal Medicine Subjective - Subjective Service Date: 09/14/16 (dc [id number]) Internal Medicine Objective - Results Result Diagrams: 09/13/16 05:06 09/14/16 05:20 Recent Labs: Laboratory Last Values WBC 7.3 Th/cmm (4.8-10.8) 09/13/16 05:06 RBC 5.39 Mil/cmm (3.80-5.10) H 09/13/16 05:06 Hgb 11.8 gm/dL (11.7-15.5) 09/13/16 05:06 Hct 39.0 % (35.0-45.0) 09/13/16 05:06 MCV 72.3 fl (81-100) L 09/13/16 05:06 MCH 21.9 pg (27.0-31.0) L 09/13/16 05:06 MCHC Differential 30.2 pg (28.0-36.0) 09/13/16 05:06 RDW 22.2 % (11.5-20.0) H 09/13/16 05:06 Plt Count 232 Th/cmm (150-400) 09/13/16 05:06 MPV 9.3 fl 09/13/16 05:06 Band Neutrophils % 2 % (0-10) 09/12/16 05:21 Neutrophils (Manual) 80 % (40-80) 09/13/16 05:06 Lymphocytes 11 % (20-50) L 09/13/16 05:06 Monocytes 4 % (2-10) 09/13/16 05:06 Eosinophils 5 % (0-5) 09/13/16 05:06 Platelet Estimate ADEQUATE (NORMAL) 09/13/16 05:06 Platelet Morphology NORMAL (NORMAL) 09/13/16 05:06 Anisocytosis 1+ 09/13/16 05:06 Microcytosis 2+ 09/13/16 05:06 RBC Morph Micro Appear ABNORMAL (NORMAL) 09/13/16 05:06 Sodium 136 mEq/L (136-145) 09/14/16 05:20 Potassium 4.7 mEq/L (3.5-5.1) 09/14/16 05:20 Chloride 89 mEq/L (98-107) L 09/14/16 05:20 Carbon Dioxide 44.9 mEq/L (21.0-31.0) H 09/14/16 05:20 Anion Gap 6.8 (7.0-16.0) L 09/14/16 05:20 BUN 19 mg/dL (7-25) 09/14/16 05:20 Creatinine 0.6 mg/dL (0.6-1.2) 09/14/16 05:20 Est GFR ( Amer) > 60.0 ml/min (>90) 09/14/16 05:20 Est GFR (Non-Af Amer) > 60.0 ml/min 09/14/16 05:20 BUN/Creatinine Ratio 31.7 09/14/16 05:20 Glucose 126 mg/dL (70-105) H 09/14/16 05:20 POC Glucose 180 MG/DL (70 - 105) H 09/14/16 11:56 Hemoglobin A1c % 9.0 % (4.0-6.0) H 09/11/16 05:49 Calcium 9.8 mg/dL (8.6-10.3) 09/14/16 05:20 Magnesium 1.8 mg/dL (1.9-2.7) L 09/13/16 05:06 Total Bilirubin 1.3 mg/dL (0.3-1.0) H 09/11/16 05:49 AST 15 U/L (13-39) 09/11/16 05:49 ALT 19 U/L (7-52) 09/11/16 05:49 Alkaline Phosphatase 74 U/L (34-104) 09/11/16 05:49 B-Natriuretic Peptide 79.0 pg/mL (5.0-100.0) 09/14/16 05:20 Total Protein 6.2 gm/dL (6.0-8.3) 09/11/16 05:49 Albumin 3.4 gm/dL (3.7-5.3) L 09/11/16 05:49 Globulin 2.8 gm/dL 09/11/16 05:49 Albumin/Globulin Ratio 1.2 (1.0-1.8) 09/11/16 05:49 Vitamin B12 1351 pg/mL (211-946) H 09/11/16 05:49 Folic Acid 12.1 ng/mL (>3.0) 09/11/16 05:49 TSH 11.37 uIU/ml (0.34-5.60) H 09/11/16 05:49 Urine Source CLEAN C 09/11/16 00:45 Urine Color YELLOW 09/11/16 00:45 Urine Clarity CLEAR (CLEAR) 09/11/16 00:45 Urine pH 5.0 09/11/16 00:45 Ur Specific [place] 1.015 (1.005-1.030) 09/11/16 00:45 Urine Protein NEGATIVE mg/dL (NEGATIVE) 09/11/16 00:45 Urine Glucose (UA) NEGATIVE mg/dL (NEGATIVE) 09/11/16 00:45 Urine Ketones NEGATIVE mg/dL (NEGATIVE) 09/11/16 00:45 Urine Blood TRACE (NEGATIVE) 09/11/16 00:45 Urine Nitrate NEGATIVE (NEGATIVE) 09/11/16 00:45 Urine Bilirubin NEGATIVE (NEGATIVE) 09/11/16 00:45 Urine Urobilinogen 0.2 E.U./dL (0.2 - 1.0) 09/11/16 00:45 Ur Leukocyte Esterase NEGATIVE (NEGATIVE) 09/11/16 00:45 Urine RBC 0-2 /hpf (0-5) 09/11/16 00:45 Urine WBC 0-2 /hpf (0-5) 09/11/16 00:45 Ur Epithelial Cells MODERATE /lpf (FEW) 09/11/16 00:45 Urine Bacteria OCCASIONAL /hpf (NONE SEEN) 09/11/16 00:45 - Physical Exam Vitals and I&O: Vital Signs Temp 97.5 F 09/14/16 08:00 Pulse 57 09/14/16 08:51 Resp 18 09/14/16 12:00 BP 111/65 09/14/16 08:51 Pulse Ox 95 09/14/16 08:00 Intake & Output 09/13/16 09/14/16 09/14/16 18:59 06:59 18:59 Intake Total 240 360 Output Total 250 500 Balance -10 -140 Intake: Oral 240 360 Output: Urine 250 500 Active Medications: Current Medications Acetaminophen (Tylenol) 650 mg PO Q4HR PRN PRN Reason: Pain or Fever >101 Stop: 11/10/16 00:10 Albuterol Sulfate (Albuterol 2.5mg/3ml Neb Ud) 2.5 mg HHN Q2HR PRN PRN Reason: Shortness of Breath or Wheeze Stop: 11/10/16 00:10 Last Admin: 09/11/16 01:01 Dose: 2.5 mg Aspirin (Ecotrin) 81 mg PO DAILY [facility] Stop: 11/10/16 08:59 Last Admin: 09/14/16 08:46 Dose: 81 mg Docusate Sodium (Colace) 100 mg PO DAILY PRN PRN Reason: Constipation Stop: 11/10/16 00:07 Duloxetine HCl (Cymbalta) 30 mg PO DAILY [facility] Stop: 11/12/16 08:59 Last Admin: 09/14/16 08:47 Dose: 30 mg Furosemide (Lasix) 40 mg IVP DAILY [facility] Stop: 11/11/16 08:59 Last Admin: 09/14/16 08:51 Dose: 40 mg Glipizide (Glucotrol) 10 mg PO BID [facility] Stop: 11/10/16 08:59 Last Admin: 09/14/16 08:47 Dose: 10 mg Heparin Sodium (Porcine) (Heparin) 5,000 units SUBQ Q12HR [facility] Stop: 11/10/16 08:59 Last Admin: 09/14/16 08:51 Dose: 5,000 units Insulin Aspart (Novolog) 0 units SUBQ ACHS [facility] PRN Reason: Protocol Stop: 11/10/16 07:29 Last Admin: 09/14/16 11:58 Dose: Not Given Ipratropium [place] (Atrovent Neb 0.5mg/2.5ml) 0.5 mg HHN Q6HR PRN PRN Reason: SOB, wheezing Stop: 11/10/16 00:07 Levothyroxine Sodium (Synthroid) 0.15 mg PO QDAC [facility] Stop: 11/11/16 07:29 Last Admin: 09/14/16 06:30 Dose: 0.15 mg Metoprolol Tartrate (Lopressor) 50 mg PO BID [facility] Stop: 11/10/16 08:59 Last Admin: 09/14/16 08:51 Dose: 50 mg Ondansetron HCl (Zofran) 4 mg IV Q8H PRN PRN Reason: Nausea / Vomiting Stop: 11/10/16 00:10 Pantoprazole Sodium (Protonix) 40 mg PO DAILY [facility] Stop: 11/10/16 08:59 Last Admin: 09/14/16 08:47 Dose: 40 mg Pioglitazone HCl (Actos) 15 mg PO DAILY [facility] Stop: 11/10/16 08:59 Last Admin: 09/14/16 08:47 Dose: 15 mg Potassium Chloride (Klor-Con) 10 meq PO BID [facility] Stop: 11/10/16 08:59 Last Admin: 09/14/16 08:47 Dose: 10 meq Simvastatin (Zocor) 20 mg PO HS [facility] PRN Reason: Protocol Stop: 11/10/16 20:59 Last Admin: 09/13/16 20:30 Dose: 20 mg Zolpidem Tartrate (Ambien) 10 mg PO HS PRN PRN Reason: Insomnia Stop: 11/10/16 00:10 Internal Medicine Assmt/Plan - Assessment Assessment: ACUTE CHF EXACERBATION MORBID OBESITY HTN HYPOTHYROIDISM HYPOMAGNESEMIA MORBID OBESITY DM-2 DEPRESSION
--- NOTE | 2016-09-14 21:05 | Discharge Summary ---
FINAL DIAGNOSES: Acute congestive heart failure exacerbation, generalized edema, hypothyroidism, type 2 diabetes, hypomagnesemia which has resolved. HISTORY OF PRESENT ILLNESS: A 61-year-old female, who is a direct admission from [facility]. According to the patient, she was just recently in [place] 4 days ago and she states that she had flu. Upon coming back here to the [place], the patient stated that she started to feel depressed. She left her family and she started to get shortness of breath associated with leg swelling. The patient denies any cough, any chest pain. Due to insurance purposes, the patient is now here at [facility]. PHYSICAL EXAMINATION: GENERAL: The patient is well developed, well nourished, in no acute distress. VITAL SIGNS: Stable. HEENT: Normocephalic, atraumatic. NECK: Supple. No mass. LUNGS: Clear bilaterally. CARDIOVASCULAR: Regular rate and rhythm. ABDOMEN: Soft, nontender. HOSPITAL COURSE: During the hospital stay, the patient was admitted to the telemetry unit. The patient had a consultation with Dr. Jose Christianson. The patient had a 2D echocardiogram done and ejection fraction was at 55%. The patient was kept on supplemental oxygen. The patient was also on Lasix due to the bilateral leg swelling. After receiving Lasix, the patient's swelling has gone down. Educated the patient the importance of following a low sodium diet. Also, the patient had a chest x-ray done and impression was cardiomegaly, no acute pulmonary processes. The patient was stable for discharge. CONDITION UPON DISCHARGE: Fair. DISPOSITION: The patient is going home. JOB# [id number]
== END 2016-09-14 19:40 | DRG 133 ==
LOC: TELE 23:15
PROVIDERS: ADMIT Internal Medicine; ATTEND Internal Medicine
DX: J96.00 Acute respiratory failure, unspecified whether with hypoxia or hypercapnia (principal); I50.33 Acute on chronic diastolic (congestive) heart failure; E83.42 Hypomagnesemia; F33.1 Major depressive disorder, recurrent, moderate; I11.0 Hypertensive heart disease with heart failure; E03.9 Hypothyroidism, unspecified; E11.9 Type 2 diabetes mellitus without complications; J45.909 Unspecified asthma, uncomplicated; E78.5 Hyperlipidemia, unspecified; E66.01 Morbid (severe) obesity due to excess calories; F41.9 Anxiety disorder, unspecified; Z68.39 Body mass index [BMI] 39.0-39.9, adult
CPT/HCPCS: 36415-UA; 71010-TC; 80048-TC; 80053-TC; 81001-TC; 82607-90; 82746-90; 82948-90; 83036-90; 83735-TC; 83880-TC; 84443-TC; 85007-TC; 85027-TC; 94640; 94664; 94760; J1644; J1815; J1940; J3475; J7613; Z7610